=== PATIENT | female | born 1985 | race Caucasian/White ===

== ENCOUNTER 2020-12-17 16:31 | Emergency (ER) | payer OTHER ==
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
== END 2020-12-17 19:19 | disposition home or self-care (01) ==
LOC: MW.ED 16:31
DX: S59.911A Unspecified injury of right forearm, initial encounter (principal); S89.91XA Unspecified injury of right lower leg, initial encounter; S19.9XXA Unspecified injury of neck, initial encounter; V89.2XXA Person injured in unspecified motor-vehicle accident, traffic, initial encounter
CPT/HCPCS: 99283